=== PATIENT | female | born 1960 | race Caucasian/White ===

== ENCOUNTER 2020-08-07 16:10 | Emergency (ER) | payer OTHER, SELFPAY ==
[2020-08-07 16:21] VITALS: BP 165/91; PULSE 82; RESP 18; TEMP 36.8; O2SAT 97; BMI 26.6
--- NOTE | 2020-08-07 16:32 | ED_ITS ---
HPI - Animal Bite General: Chief Complaint: Extremity Injury, Upper Stated Complaint: DOG BITE 1.5 WEEKS AGO Time Seen by Provider: 08/07/20 16:29 Source: patient Mode of arrival: ambulatory Limitations: no limitations History of Present Illness: HPI narrative: Patient is a 60-year-old female who presents to ED today for evaluation of a dog bite to her left hand that she sustained 1.5 weeks ago. Patient states the dog was her neighbor's dog and up-to-date on immunizations. She states the dog was protecting another small puppy when it bit her. Dog is continued to act normally. Patient states she sustained 2 small puncture wounds to the dorsum of her left hand that were copiously irrigated directly after event. She states a few days later she began noticing redness and swelling to the ulnar side of her hand which subsided on its own but then quickly noticed redness and swelling to the radial side of her hand. She states this too, improved on its own but has now noticed redness and swelling to her left index finger. She thinks some of the redness may be secondary to the tape she is using as she is deathly allergic to tape . Patient has not been running fevers. She has been able to use the extremity normally. Tetanus is up-to-date. complaint: animal bite Onset (ago): day(s) Animal: dog Description of animal: household pet and immunizations UTD Mechanism: bite Location - Extremities: Left: hand Context: provoked Associated symptoms: Reports no associated symptoms; Deny chills or fever(s) Treatments prior to arrival: irrigation Related Data: Patient tetanus UTD: Yes Review of Systems Const: Denies: fever(s), chills, body aches, fatigue or malaise GI: Denies: nausea or vomiting Musc: Reports: extremity pain and extremity swelling Skin/Breast: Reports: erythema Neuro: Denies: numbness in extremities, weakness in extremities or sensory changes Physical Exam Const: COMMON NORMALS: no acute distress, average body habitus, patient oriented x3, no limitations, healthy appearing, alert and well nourished Extremity: GENERAL: Yes normal exam except as noted OTHER: pt has two very small 2mm healed puncture wounds to radial dorsal side of L hand; no surrounding redness or drainage; she has redness to the dorsum of her L index finger that does appear more allergic than cellulitic; it does have some warmth and swelling to it; there is no pain along the entire tendon, finger is not flexed, no diffuse/uniform swelling; she maintains good ROM although slightly limited secondary to the swelling Neuro: COMMON NORMALS: patient oriented x3, moves all extremities, no focal motor deficits and no sensory deficits noted SENSORIUM/ORIENTATION: Yes alert Skin: NARRATIVE SKIN EXAM: see extremity assessment Course Vital Signs: Vital signs: Vital Signs Temperature 98.3 F 08/07/20 16:21 Pulse Rate 82 08/07/20 16:21 Respiratory Rate 18 08/07/20 16:21 Blood Pressure 165/91 08/07/20 16:21 Pulse Oximetry 97 08/07/20 16:21 MDM - Animal Bite MDM Narrative: Medical decision making narrative: Patient here for redness and swelling to her left hand following a dog bite 1.5 weeks ago. Redness and swelling seems to be moving around her hand and does not sound classically like cellulitis following a dog bite however I would rather err on the side of caution will place patient on antibiotics. She has an allergy to penicillins. Doxycycline and clindamycin would provide coverage for animal bites. Return to ED precautions given. Imaging Data^: XR L hand: My impression: NAD; no fractures/fbs visualized Discharge Plan Discharge Patient Disposition: Home Clinical Impression: Dog bite of left hand Qualifiers: Encounter type: initial encounter Qualified Code(s): S61.452A - Open bite of left hand, initial encounter Condition: Stable Prescriptions: New doxycycline monohydrate 100 mg capsule 100 mg PO Q12H 10 Days Qty: 20 RF: 0 clindamycin HCl 300 mg capsule 300 mg PO Q6H 7 Days Qty: 28 RF: 0 Discharge Orders: Discharge Order (Routine); Ordered 08/07/20 Ordered By: Ricarda Harrison Activity Restrictions/Additional Instructions: Please begin your antibiotics immediately. Monitor the redness on your hand. You need to return to the emergency department for worsening redness, swelling, and pain despite antibiotic use. Discharge Date/Time: 08/07/20 17:23 Coding Level of Care Code ED Radial Arm Saw Operator for Shailesh Mcfarlane Exam Expanded Problem Focused
--- NOTE | 2020-08-07 16:43 | XR_ITS ---
WS: [id number] Left hand, 3 views, 08/07/2020 Clinical Data: dog bite Comparison: None. Findings: No fractures or dislocations are seen. The soft tissues are unremarkable. The joint spaces are normal The patient's ring obscures minimal detail left fourth proximal phalanx. No radiopaque foreign bodies are seen in the soft tissues. XR/XR hand LT min 3V* [id number] Impression: Negative left hand.
== END 2020-08-07 17:23 | disposition home or self-care (01) ==
PROVIDERS: Emergency Provider Physician Assistant
DX: S61.452A Open bite of left hand, initial encounter (principal); W54.0XXA Bitten by dog, initial encounter
CPT/HCPCS: 12345; 73130; 99281; 99282

== ENCOUNTER → 2022-09-27 16:16 | Outpatient (BNVA) | payer OTHER, SELFPAY | PROVIDERS: Visit Provider Nurse Practitioner | DX: J06.9 Acute upper respiratory infection, unspecified (principal) | CPT/HCPCS: 87400 ==